=== PATIENT | female | born 1950 | race Caucasian/White ===

== ENCOUNTER 2016-06-21 09:05 | Day surgery (SDC) | payer OTHER ==
[~2016-06-21] VITALS: Ht 167.6 cm; Wt 98.6 kg
[~2016-06-21 09:05] MED LIST: ADVAIR 250/501 DISK IH; ADVAIR HFA120 INHAL1 IH; ASCORBIC ACID250 MG PO; ASPIR-LOW81 MG PO; Aspirin PO; B COMPLETE1 EACH PO; BIOTIN1000 MICRO PO; Biotin PO; CEFTIN500 MG PO; CHANTIX0.5 MG PO; Ceftin PO; DUONEB 2.5-0.5 M3 ML AEROSOL; FRUITY C250 MG PO; HI-B12/Foliplex PO; KETOROLAC TROME10 MG PO; LIDODERM 5% P1 PATCH TD; LYRICA100 MG PO; LYRICA50 MG PO; LYRICA75 MG PO; NICODERM CQ1 EAC1 TD; NICODERM CQ1 EAC2 TD; NICODERM CQ1 EACH TD; NICOTINE PATCH1 EACH TD; PERCOCET 10/1 TABLET PO; PREDNISONE10 MG PO; PREDNISONE20 MG PO; PREDNISONE5 MG PO; PROVENTIL,2.5 MG/0.5 IH; SPIRIVA RESPIMAT4 GM IH; TIZANIDINE HCL2 MG PO; TYLENOL EXTRA500 MG PO; Tylenol Extra Streng PO; VENTOLIN HFA18 GM IH; VITAMIN B-12250 MCG PO; VITAMIN D31000 UNI2 PO; WELLBUTRIN SR150 MG PO; ZANAFLEX2 M1 PO; ZANTAC300 MG PO; Zithromax PO; levofloxacin; predniSONE PO
== END 2016-06-21 11:32 | disposition home or self-care (01) ==
LOC: PAIN 09:05 → SDC 09:30 → PAIN 09:30
PROC: 015B3ZZ Destruction of Lumbar Nerve, Percutaneous Approach (ICD-10-PCS; principal; 2016-06-21)
DX: M47.816 Spondylosis without myelopathy or radiculopathy, lumbar region (principal); F41.9 Anxiety disorder, unspecified; M12.88 Other specific arthropathies, not elsewhere classified, other specified site; M99.83 Other biomechanical lesions of lumbar region; M54.16 Radiculopathy, lumbar region; F17.200 Nicotine dependence, unspecified, uncomplicated; E66.9 Obesity, unspecified; Z68.34 Body mass index [BMI] 34.0-34.9, adult; E78.5 Hyperlipidemia, unspecified; Z96.659 Presence of unspecified artificial knee joint; Z88.1 Allergy status to other antibiotic agents; Z88.2 Allergy status to sulfonamides; Z88.5 Allergy status to narcotic agent
CPT/HCPCS: J2250; J3010

== ENCOUNTER 2016-06-28 08:55 | Day surgery (SDC) | payer OTHER ==
[~2016-06-28] VITALS: Ht 167.6 cm; Wt 98.6 kg
== END 2016-06-28 11:03 | disposition home or self-care (01) ==
LOC: PAIN 08:55 → SDC 09:30 → PAIN 11:03
PROC: 015B3ZZ Destruction of Lumbar Nerve, Percutaneous Approach (ICD-10-PCS; principal; 2016-06-28)
DX: M47.816 Spondylosis without myelopathy or radiculopathy, lumbar region (principal); M54.5 Low back pain; F41.9 Anxiety disorder, unspecified; M12.88 Other specific arthropathies, not elsewhere classified, other specified site; M48.06 Spinal stenosis, lumbar region; M99.83 Other biomechanical lesions of lumbar region; F17.200 Nicotine dependence, unspecified, uncomplicated; E78.5 Hyperlipidemia, unspecified; E66.9 Obesity, unspecified; Z68.34 Body mass index [BMI] 34.0-34.9, adult; J44.9 Chronic obstructive pulmonary disease, unspecified; Z96.659 Presence of unspecified artificial knee joint; Z88.1 Allergy status to other antibiotic agents; Z88.5 Allergy status to narcotic agent
CPT/HCPCS: J1030; J2250; J3010; S0020

== ENCOUNTER 2016-07-21 10:25 | Day surgery (SDC) | payer OTHER ==
[~2016-07-21] VITALS: Ht 167.6 cm; Wt 98.6 kg
[2016-07-26] MEDS ORDERED: NON-ASPIRIN PA325 MG PO (11:21)
== END 2016-07-21 12:50 | disposition home or self-care (01) ==
LOC: PAIN 10:25 → SDC 11:15 → PAIN 12:50
DX: M47.892 Other spondylosis, cervical region (principal); F41.1 Generalized anxiety disorder; J44.9 Chronic obstructive pulmonary disease, unspecified; M12.88 Other specific arthropathies, not elsewhere classified, other specified site; M54.16 Radiculopathy, lumbar region; R73.01 Impaired fasting glucose; F17.200 Nicotine dependence, unspecified, uncomplicated; R91.1 Solitary pulmonary nodule; E78.5 Hyperlipidemia, unspecified
CPT/HCPCS: J1030; J2250; J3010; S0020

== ENCOUNTER 2016-07-28 13:41 | Day surgery (SDC) | payer OTHER ==
[~2016-07-28] VITALS: Ht 167.6 cm; Wt 98.4 kg
[~2016-07-28 13:41] MED LIST changes: +NON-ASPIRIN PA325 MG PO
[2016-07-28] MEDS ORDERED: OXYCODONE HCL15 MG PO (14:32)
== END 2016-07-28 15:56 | disposition home or self-care (01) ==
LOC: PAIN 13:41
PROC: 3E0T3BZ Introduction of Anesthetic Agent into Peripheral Nerves and Plexi, Percutaneous Approach (ICD-10-PCS; principal; 2016-07-28)
DX: M47.892 Other spondylosis, cervical region (principal); F41.1 Generalized anxiety disorder; M54.16 Radiculopathy, lumbar region; F17.200 Nicotine dependence, unspecified, uncomplicated; J44.9 Chronic obstructive pulmonary disease, unspecified; E78.5 Hyperlipidemia, unspecified; M47.816 Spondylosis without myelopathy or radiculopathy, lumbar region; M79.1 Myalgia; R73.01 Impaired fasting glucose
CPT/HCPCS: J1030; J2250; J3010; S0020

== ENCOUNTER 2016-09-02 09:46 | Day surgery (SDC) | payer OTHER ==
[~2016-09-02] VITALS: Ht 167.6 cm; Wt 96.6 kg
[~2016-09-02 09:46] MED LIST changes: +OXYCODONE HCL15 MG PO
== END 2016-09-02 12:17 | disposition home or self-care (01) ==
LOC: PAIN 09:46
DX: M47.812 Spondylosis without myelopathy or radiculopathy, cervical region (principal); F41.9 Anxiety disorder, unspecified; M48.06 Spinal stenosis, lumbar region; M79.1 Myalgia; M19.90 Unspecified osteoarthritis, unspecified site; M25.561 Pain in right knee; F17.200 Nicotine dependence, unspecified, uncomplicated; J44.9 Chronic obstructive pulmonary disease, unspecified; E78.2 Mixed hyperlipidemia; E78.5 Hyperlipidemia, unspecified; R73.01 Impaired fasting glucose; Z68.35 Body mass index [BMI] 35.0-35.9, adult; Z96.659 Presence of unspecified artificial knee joint; Z88.5 Allergy status to narcotic agent; Z88.1 Allergy status to other antibiotic agents; Z88.8 Allergy status to other drugs, medicaments and biological substances
CPT/HCPCS: J1030; J2250; J3010; S0020

== ENCOUNTER 2016-11-15 13:14 | Day surgery (SDC) | payer OTHER ==
[~2016-11-15] VITALS: Ht 167.6 cm; Wt 93.9 kg
[~2016-11-15 13:14] MED LIST changes: +OXYCODONE HCL10 MG PO
== END 2016-11-15 14:50 | disposition home or self-care (01) ==
LOC: PAIN 13:14 → SDC 14:00 → PAIN 14:00
PROC: 015B3ZZ Destruction of Lumbar Nerve, Percutaneous Approach (ICD-10-PCS; principal; 2016-11-15)
DX: M47.816 Spondylosis without myelopathy or radiculopathy, lumbar region (principal); F41.9 Anxiety disorder, unspecified; M48.06 Spinal stenosis, lumbar region; M99.83 Other biomechanical lesions of lumbar region; F17.200 Nicotine dependence, unspecified, uncomplicated; J44.9 Chronic obstructive pulmonary disease, unspecified; E78.2 Mixed hyperlipidemia; R73.01 Impaired fasting glucose; E66.9 Obesity, unspecified; Z68.34 Body mass index [BMI] 34.0-34.9, adult; Z88.1 Allergy status to other antibiotic agents; Z88.5 Allergy status to narcotic agent; Z88.8 Allergy status to other drugs, medicaments and biological substances
CPT/HCPCS: J1030; J2250; J3010; S0020

== ENCOUNTER 2017-03-09 09:20 | Day surgery (SDC) | payer OTHER ==
[~2017-03-09] VITALS: Ht 167.6 cm; Wt 96.2 kg
== END 2017-03-09 11:01 | disposition home or self-care (01) ==
LOC: PAIN 09:20 → SDC 10:00 → PAIN 10:00
PROC: 3E0R33Z Introduction of Anti-inflammatory into Spinal Canal, Percutaneous Approach (ICD-10-PCS; principal; 2017-03-09)
PROC: 3E0R3BZ Introduction of Anesthetic Agent into Spinal Canal, Percutaneous Approach (ICD-10-PCS; principal; 2017-03-09)
PROC: B01B1ZZ Fluoroscopy of Spinal Cord using Low Osmolar Contrast (ICD-10-PCS; principal; 2017-03-09)
DX: M47.22 Other spondylosis with radiculopathy, cervical region (principal); M50.13 Cervical disc disorder with radiculopathy, cervicothoracic region; M25.78 Osteophyte, vertebrae; M48.02 Spinal stenosis, cervical region; M54.16 Radiculopathy, lumbar region; J43.9 Emphysema, unspecified; I10 Essential (primary) hypertension; M79.1 Myalgia; E78.2 Mixed hyperlipidemia; E66.9 Obesity, unspecified; Z68.34 Body mass index [BMI] 34.0-34.9, adult; F17.200 Nicotine dependence, unspecified, uncomplicated
CPT/HCPCS: J1030; J1885; J2250; J3010

== ENCOUNTER 2017-04-16 20:09 | Emergency (ER) | payer OTHER ==
[~2017-04-16] VITALS: Ht 167.6 cm; Wt 87.9 kg
[2017-04-16 20:35] LABS: HEMATOCRIT 41.9 % (36.0-46.0); MCH 27.7 PG (29.0-34.0); MCV 86.7 FL (83-99); MEAN PLAT.VOLUME 10.2 uM^3 (9.5-12.4); PLATELET COUNT 298 K/uL (156-360); RBC DIS.WIDTH-CV 15.2 % (11.8-14.6); RED BLOOD COUNT 4.83 M/uL (3.80-5.20)
[2017-04-16 20:45] LABS: CHLORIDE 107 mEq/L (99-109); POTASSIUM 3.4 mEq/L (3.7-5.4); SODIUM 141 mEq/L (136-147)
[2017-04-16 20:46] LABS: GLUCOSE 96 mg/dL (70-99)
[2017-04-16 20:48] LABS: ANION GAP 9 MEQ/L (2-14)
[2017-04-16 20:50] LABS: GFR ESTIMATE (CALCULATED) > 59 mL/min/
[2017-04-16 20:51] LABS: UREA NITROGEN (BUN) 12 mg/dL (9-23)
[2017-04-16 20:57] LABS: TROP-I INTERPRETATION NEGATIVE; TROPONIN-I < 0.01 ng/mL (0.0-0.30)
[2017-04-16] MEDS ORDERED: PREDNISONE50 MG PO (21:55)
[2017-04-16 23:28] VITALS: BP 126/67
== END 2017-04-16 23:11 | disposition home or self-care (01) ==
LOC: EME → EDBD 20:09 → EME 23:11
PROVIDERS: Emergency Medicine
DX: J44.1 Chronic obstructive pulmonary disease with (acute) exacerbation (principal); G89.29 Other chronic pain; F17.200 Nicotine dependence, unspecified, uncomplicated; Z85.44 Personal history of malignant neoplasm of other female genital organs; Z88.2 Allergy status to sulfonamides; Z88.8 Allergy status to other drugs, medicaments and biological substances
CPT/HCPCS: 71020; 80048; 84484; 85027; 93005; 94640; 99281; 99285; J1100

== ENCOUNTER 2017-05-02 14:59 | Inpatient (IN) | payer OTHER ==
[~2017-05-02] VITALS: Ht 167.6 cm; Wt 101.7 kg
[~2017-05-02 14:59] MED LIST changes: +PREDNISONE50 MG PO; -VITAMIN B-12250 MCG PO; +VITAMIN B-12500 MC5 SL
[2017-05-02 15:55] LABS: HEMATOCRIT 43.1 % (36.0-46.0); MCH 27.9 PG (29.0-34.0); MCHC 31.8 G/DL (30.0-36.0); MCV 87.8 FL (83-99); MEAN PLAT.VOLUME 10.1 uM^3 (9.5-12.4); PLATELET COUNT 296 K/uL (156-360); RBC DIS.WIDTH-CV 15.6 % (11.8-14.6); RBC DIS.WIDTH-SD 50.4 % (39-53); RED BLOOD COUNT 4.91 M/uL (3.80-5.20); WHITE BLOOD COUNT 13.4 K/uL (4.1-10.2)
[2017-05-02 16:01] LABS: CHLORIDE 107 mEq/L (99-109); POTASSIUM 3.3 mEq/L (3.7-5.4); SODIUM 143 mEq/L (136-147)
[2017-05-02 16:03] LABS: GLUCOSE 84 mg/dL (70-99)
[2017-05-02 16:04] LABS: ANION GAP 8 MEQ/L (2-14)
[2017-05-02 16:07] LABS: GFR ESTIMATE (CALCULATED) > 59 mL/min/
[2017-05-02 16:08] LABS: UREA NITROGEN (BUN) 11 mg/dL (9-23)
[2017-05-02 16:14] LABS: TROP-I INTERPRETATION NEGATIVE; TROPONIN-I < 0.01 ng/mL (0.0-0.30)
[2017-05-02] MEDS ORDERED: ATORVASTATIN CA20 MG PO (16:22)
[2017-05-02] MEDS ORDERED: FLUCONAZOLE150 MG PO (16:23)
[2017-05-02] MEDS ORDERED: CEFDINIR300 MG PO (16:25)
[2017-05-02] MEDS ORDERED: PREDNISONE50 MG PO (16:56)
[2017-05-02] MEDS ORDERED: OXYCODONE HCL15 MG PO (18:26)
[2017-05-02 23:52] VITALS: BP 123/62
[2017-05-03 06:13] LABS: HEMATOCRIT 43.3 % (36.0-46.0); MCH 27.1 PG (29.0-34.0); MCHC 30.7 G/DL (30.0-36.0); MCV 88.4 FL (83-99); MEAN PLAT.VOLUME 10.2 uM^3 (9.5-12.4); PLATELET COUNT 295 K/uL (156-360); RBC DIS.WIDTH-CV 15.7 % (11.8-14.6); RBC DIS.WIDTH-SD 50.9 % (39-53); WHITE BLOOD COUNT 11.2 K/uL (4.1-10.2)
[2017-05-03 06:35] LABS: ANION GAP 5 MEQ/L (2-14); CHLORIDE 106 MEQ/L (99-109); GFR ESTIMATE (CALCULATED) > 59 mL/min/; SAMPLE HEMOLYSIS CHECK 0; SAMPLE ICTERIC CHECK 0; SAMPLE LIPEMIA CHECK 0; SODIUM 142 MEQ/L (136-147); UREA NITROGEN (BUN) 10 mg/dL (9-23)
[2017-05-03 06:38] LABS: GLUCOSE 142 mg/dL (70-99)
[2017-05-03 08:23] VITALS: BP 140/84
[2017-05-03] MEDS ORDERED: PREDNISONE10 MG PO (10:57)
[2017-05-03] MEDS ORDERED: MIGRAINE RELIE1 EAC2 PO (10:58)
[2017-05-03 15:31] VITALS: BP 152/82
[2017-05-04 00:08] VITALS: BP 134/63
[2017-05-04 08:02] VITALS: BP 144/91
[2017-05-04] MEDS ORDERED: PREDNISONE10 MG PO (11:59)
[2017-05-04] MEDS ORDERED: SYMBICORT60 INHALAT IH (11:59)
[2017-05-04] MEDS ORDERED: INCRUSE ELLI62.5 MCG IH (11:59)
[2017-05-04] MEDS ORDERED: NICOTINE PATCH1 EAC1 TD (11:59)
== END 2017-05-04 13:40 | disposition home or self-care (01) | DRG 192 ==
LOC: EME 14:59 → EDOF 18:36 → ENRESERV 18:37 → CANRESERV 18:52 → EDOF 19:03 → 5EAST 19:03 → EDOF 19:03 → ENRESERV 19:04 → 5EAST 21:00
PROVIDERS: Emergency Medicine; Hospitalist
DX: J44.1 Chronic obstructive pulmonary disease with (acute) exacerbation (principal); F17.200 Nicotine dependence, unspecified, uncomplicated; G89.29 Other chronic pain; M54.5 Low back pain; E78.5 Hyperlipidemia, unspecified; E03.9 Hypothyroidism, unspecified; Z96.652 Presence of left artificial knee joint; Z85.44 Personal history of malignant neoplasm of other female genital organs; J20.9 Acute bronchitis, unspecified; J44.0 Chronic obstructive pulmonary disease with (acute) lower respiratory infection; Z82.5 Family history of asthma and other chronic lower respiratory diseases; E87.6 Hypokalemia
CPT/HCPCS: 71020; 80048; 84484; 85027; 93005; 94640; 94640 76; 99202; 99281; 99285; J0456; J0696; J1650; J2920; J2930; J7030; J7050; J7512

== ENCOUNTER 2017-06-04 18:36 | Emergency (ER) | payer SELFPAY ==
[~2017-06-04] VITALS: Ht 167.6 cm; Wt 100.3 kg
[~2017-06-04 18:36] MED LIST changes: +ATORVASTATIN CA20 MG PO; +CEFDINIR300 MG PO; +FLUCONAZOLE150 MG PO; +INCRUSE ELLI62.5 MCG IH; +MIGRAINE RELIE1 EAC2 PO; +NICOTINE PATCH1 EAC1 TD; +SYMBICORT60 INHALAT IH
[2017-06-04 20:35] LABS: HEMATOCRIT 43.2 % (36.0-46.0); MCH 27.8 PG (29.0-34.0); MCHC 31.9 G/DL (30.0-36.0); MCV 87.1 FL (83-99); MEAN PLAT.VOLUME 10.6 uM^3 (9.5-12.4); PLATELET COUNT 341 K/uL (156-360); RBC DIS.WIDTH-CV 15.1 % (11.8-14.6); RBC DIS.WIDTH-SD 47.9 % (39-53); RED BLOOD COUNT 4.96 M/uL (3.80-5.20)
[2017-06-04 20:41] LABS: CHLORIDE 109 mEq/L (99-109); POTASSIUM 3.4 mEq/L (3.7-5.4); SODIUM 144 mEq/L (136-147)
[2017-06-04 20:43] LABS: GLUCOSE 86 mg/dL (70-99)
[2017-06-04 20:44] LABS: ANION GAP 10 MEQ/L (2-14)
[2017-06-04 20:46] LABS: GFR ESTIMATE (CALCULATED) > 59 mL/min/
[2017-06-04 20:47] LABS: UREA NITROGEN (BUN) 8 mg/dL (9-23)
[2017-06-04] MEDS ORDERED: CLEOCIN300 MG PO (22:58)
[2017-06-04] MEDS ORDERED: PERCOCET 10/1 TABLET PO (22:58)
[2017-06-04 23:21] VITALS: BP 119/81
== END 2017-06-04 23:41 | disposition home or self-care (01) ==
LOC: EME 18:36
PROVIDERS: Physician Assistant
DX: L03.115 Cellulitis of right lower limb (principal); L03.116 Cellulitis of left lower limb; F17.200 Nicotine dependence, unspecified, uncomplicated; Z88.1 Allergy status to other antibiotic agents; Z88.5 Allergy status to narcotic agent; Z88.2 Allergy status to sulfonamides; D64.9 Anemia, unspecified; M79.7 Fibromyalgia; K21.9 Gastro-esophageal reflux disease without esophagitis; J45.909 Unspecified asthma, uncomplicated
CPT/HCPCS: 73590; 80048; 83605; 83880; 85027; 87040; 87070; 87075; 87205; 99281; 99285; J1885; J3010; J3370; J7030

== ENCOUNTER 2017-06-07 18:21 | Inpatient (IN) | payer SELFPAY ==
[~2017-06-07] VITALS: Ht 167.6 cm; Wt 90.5 kg
[~2017-06-07 18:21] MED LIST changes: +CLEOCIN300 MG PO
[2017-06-07 19:03] LABS: HEMATOCRIT 42.4 % (36.0-46.0); MCH 28.2 PG (29.0-34.0); MCHC 32.3 G/DL (30.0-36.0); MCV 87.2 FL (83-99); MEAN PLAT.VOLUME 10.2 uM^3 (9.5-12.4); PLATELET COUNT 296 K/uL (156-360); RBC DIS.WIDTH-CV 14.9 % (11.8-14.6); RBC DIS.WIDTH-SD 47.8 % (39-53); RED BLOOD COUNT 4.86 M/uL (3.80-5.20); WHITE BLOOD COUNT 8.8 K/uL (4.1-10.2)
[2017-06-07 19:12] LABS: CHLORIDE 107 mEq/L (99-109); POTASSIUM 3.7 mEq/L (3.7-5.4); SODIUM 141 mEq/L (136-147)
[2017-06-07 19:14] LABS: GLUCOSE 116 mg/dL (70-99)
[2017-06-07 19:15] LABS: ANION GAP 9 MEQ/L (2-14)
[2017-06-07 19:16] LABS: TOTAL BILIRUBIN 0.5 mg/dL (0.0-1.0)
[2017-06-07 19:17] LABS: ALKALINE PHOSPHATASE 187 IU/L (3-129)
[2017-06-07 19:18] LABS: GFR ESTIMATE (CALCULATED) > 59 mL/min/
[2017-06-07 19:19] LABS: UREA NITROGEN (BUN) 10 mg/dL (9-23)
[2017-06-08] VITALS (7 sets, daily range): BP systolic 104–145; BP diastolic 59–89
[2017-06-08 08:42] LABS: BASOPHIL COUNT 0.1 K/uL (0-0.1); EOSINOPHIL (%) 3.3 % (0-5); EOSINOPHIL COUNT 0.3 K/uL (0-0.3); HEMATOCRIT 40.7 % (36.0-46.0); IMMATURE GRANULOCYTE (%) 0.8 % (0.0-0.7); IMMATURE GRANULOCYTE COUNT 0.1 K/uL; INSTRUMENT ABS NEUTROPHIL CT 4.2 K/uL; LYMPHOCYTE COUNT 2.4 K/uL (1.0-2.8); MCH 26.7 PG (29.0-34.0); MCHC 30.7 G/DL (30.0-36.0); MEAN PLAT.VOLUME 10.3 uM^3 (9.5-12.4); MONOCYTE (%) 8.5 % (3-12); MONOCYTE COUNT 0.7 K/uL (0-0.8); NEUTROPHIL (%) 54.6 % (45-76); NEUTROPHIL COUNT 4.2 K/uL (1.8-6.4); PLATELET COUNT 312 K/uL (156-360); RBC DIS.WIDTH-CV 14.9 % (11.8-14.6); RBC DIS.WIDTH-SD 47.8 % (39-53); RED BLOOD COUNT 4.68 M/uL (3.80-5.20); WHITE BLOOD COUNT 7.6 K/uL (4.1-10.2)
[2017-06-08 09:04] LABS: ANION GAP 8 MEQ/L (2-14); CHLORIDE 107 MEQ/L (99-109); GFR ESTIMATE (CALCULATED) > 59 mL/min/; GLUCOSE 107 mg/dL (70-99); POTASSIUM 4.1 MEQ/L (3.7-5.4); SAMPLE HEMOLYSIS CHECK 0; SAMPLE ICTERIC CHECK 0; SAMPLE LIPEMIA CHECK 0; SODIUM 140 MEQ/L (136-147); UREA NITROGEN (BUN) 10 mg/dL (9-23)
[2017-06-09 07:30] VITALS: BP 130/66
[2017-06-09 15:21] VITALS: BP 131/88
[2017-06-09 19:31] VITALS: BP 105/61
[2017-06-10 00:13] VITALS: BP 117/64
[2017-06-10 06:03] LABS: BASOPHIL COUNT 0.1 K/uL (0-0.1); EOSINOPHIL (%) 1.9 % (0-5); EOSINOPHIL COUNT 0.2 K/uL (0-0.3); HEMATOCRIT 37.5 % (36.0-46.0); IMMATURE GRANULOCYTE (%) 0.7 % (0.0-0.7); IMMATURE GRANULOCYTE COUNT 0.1 K/uL; INSTRUMENT ABS NEUTROPHIL CT 6.3 K/uL; LYMPHOCYTE COUNT 2.1 K/uL (1.0-2.8); MCH 27.9 PG (29.0-34.0); MCHC 32.3 G/DL (30.0-36.0); MCV 86.6 FL (83-99); MEAN PLAT.VOLUME 10.5 uM^3 (9.5-12.4); MONOCYTE (%) 9.4 % (3-12); MONOCYTE COUNT 0.9 K/uL (0-0.8); NEUTROPHIL (%) 65.3 % (45-76); NEUTROPHIL COUNT 6.3 K/uL (1.8-6.4); PLATELET COUNT 273 K/uL (156-360); RBC DIS.WIDTH-SD 47.5 % (39-53); RED BLOOD COUNT 4.33 M/uL (3.80-5.20); WHITE BLOOD COUNT 9.7 K/uL (4.1-10.2)
[2017-06-10 06:38] LABS: ANION GAP 10 MEQ/L (2-14); CHLORIDE 100 MEQ/L (99-109); GFR ESTIMATE (CALCULATED) > 59 mL/min/; GLUCOSE 137 mg/dL (70-99); MAGNESIUM 1.7 mg/dl (1.3-2.7); POTASSIUM 3.3 MEQ/L (3.7-5.4); SAMPLE HEMOLYSIS CHECK 0; SAMPLE ICTERIC CHECK 0; SAMPLE LIPEMIA CHECK 0; SODIUM 137 MEQ/L (136-147); UREA NITROGEN (BUN) 9 mg/dL (9-23)
[2017-06-10 07:38] VITALS: BP 130/64
[2017-06-10 15:26] VITALS: BP 130/74
[2017-06-11 00:28] VITALS: BP 125/75
[2017-06-11 06:35] LABS: BASOPHIL COUNT 0.1 K/uL (0-0.1); EOSINOPHIL (%) 3.3 % (0-5); EOSINOPHIL COUNT 0.2 K/uL (0-0.3); HEMATOCRIT 38.8 % (36.0-46.0); IMMATURE GRANULOCYTE (%) 0.7 % (0.0-0.7); IMMATURE GRANULOCYTE COUNT 0.1 K/uL; INSTRUMENT ABS NEUTROPHIL CT 3.8 K/uL; LYMPHOCYTE COUNT 2.1 K/uL (1.0-2.8); MCH 26.9 PG (29.0-34.0); MCHC 31.4 G/DL (30.0-36.0); MCV 85.5 FL (83-99); MEAN PLAT.VOLUME 10.6 uM^3 (9.5-12.4); MONOCYTE (%) 9.8 % (3-12); MONOCYTE COUNT 0.7 K/uL (0-0.8); NEUTROPHIL (%) 55.1 % (45-76); NEUTROPHIL COUNT 3.8 K/uL (1.8-6.4); PLATELET COUNT 286 K/uL (156-360); RBC DIS.WIDTH-SD 46.8 % (39-53); RED BLOOD COUNT 4.54 M/uL (3.80-5.20)
[2017-06-11 07:15] LABS: ANION GAP 8 MEQ/L (2-14); CHLORIDE 102 MEQ/L (99-109); GFR ESTIMATE (CALCULATED) > 59 mL/min/; GLUCOSE 107 mg/dL (70-99); POTASSIUM 3.5 MEQ/L (3.7-5.4); SAMPLE HEMOLYSIS CHECK 0; SAMPLE ICTERIC CHECK 0; SAMPLE LIPEMIA CHECK 0; SODIUM 142 MEQ/L (136-147); UREA NITROGEN (BUN) 8 mg/dL (9-23)
[2017-06-11 08:00] VITALS: BP 112/65
[2017-06-11 16:31] VITALS: BP 141/67
[2017-06-11 23:47] VITALS: BP 154/79
[2017-06-12 08:32] VITALS: BP 133/62
[2017-06-12] MEDS ORDERED: K-DUR20 MEQ PO (09:39)
[2017-06-12] MEDS ORDERED: LASIX20 MG PO (09:39)
[2017-06-12] MEDS ORDERED: CARVEDILOL6.25 MG PO (09:40)
[2017-06-12] MEDS ORDERED: LISINOPRIL2.5 MG PO (09:40)
== END 2017-06-12 13:25 | disposition home or self-care (01) | DRG 293 ==
LOC: EME 18:21 → 2EAST 21:12 → EDOF 21:12 → ENRESERV 21:16 → 2EAST 23:51
PROVIDERS: Hospitalist; Internal Medicine; Student in an Organized Health Care Education/Training Program
DX: I50.33 Acute on chronic diastolic (congestive) heart failure (principal); I87.2 Venous insufficiency (chronic) (peripheral); J44.9 Chronic obstructive pulmonary disease, unspecified; F43.23 Adjustment disorder with mixed anxiety and depressed mood; I27.20 Pulmonary hypertension, unspecified; M54.10 Radiculopathy, site unspecified; E78.5 Hyperlipidemia, unspecified; F17.210 Nicotine dependence, cigarettes, uncomplicated; Z68.32 Body mass index [BMI] 32.0-32.9, adult; E66.9 Obesity, unspecified; G89.29 Other chronic pain; R04.0 Epistaxis; K21.9 Gastro-esophageal reflux disease without esophagitis; G43.909 Migraine, unspecified, not intractable, without status migrainosus; M79.7 Fibromyalgia; Z90.710 Acquired absence of both cervix and uterus; Z85.44 Personal history of malignant neoplasm of other female genital organs; Z96.652 Presence of left artificial knee joint; Z79.51 Long term (current) use of inhaled steroids; Z88.2 Allergy status to sulfonamides; Z82.5 Family history of asthma and other chronic lower respiratory diseases
CPT/HCPCS: 80048; 80053; 80202; 83735; 85025; 85027; 93306; 93970; 94640; 94640 76; 94760; 94799; 99202; 99281; 99285; J1170; J1650; J1940; J2405; J3010; J3370

== ENCOUNTER 2017-10-16 10:33 | Day surgery (SDC) | payer OTHER ==
[~2017-10-16] VITALS: Ht 167.6 cm; Wt 90.7 kg
[~2017-10-16 10:33] MED LIST changes: +CARVEDILOL6.25 MG PO; +K-DUR20 MEQ PO; +LASIX20 MG PO; +LISINOPRIL2.5 MG PO; +NEURONTIN300 MG PO
== END 2017-10-16 12:23 | disposition home or self-care (01) ==
LOC: PAIN 10:33 → SDC 11:15 → PAIN 11:15
DX: M47.816 Spondylosis without myelopathy or radiculopathy, lumbar region (principal); M99.83 Other biomechanical lesions of lumbar region; M47.11 Other spondylosis with myelopathy, occipito-atlanto-axial region; F17.200 Nicotine dependence, unspecified, uncomplicated; Z88.1 Allergy status to other antibiotic agents; Z88.5 Allergy status to narcotic agent
CPT/HCPCS: J1030; J1885; J2250; S0020

== ENCOUNTER 2017-11-30 08:45 | Day surgery (SDC) | payer OTHER ==
[~2017-11-30] VITALS: Ht 167.6 cm; Wt 90.7 kg
[~2017-11-30 08:45] MED LIST changes: +POTASSIUM-9999 MG PO; +ROXICODONE15 MG PO; +[UNRECOGNIZED DRUG - OTHER] TP
== END 2017-11-30 11:25 | disposition home or self-care (01) ==
LOC: PAIN 08:45
PROC: BR141ZZ Fluoroscopy of Cervical Facet Joint(s) using Low Osmolar Contrast (ICD-10-PCS; principal; 2017-11-30)
PROC: 3E0T3TZ Introduction of Destructive Agent into Peripheral Nerves and Plexi, Percutaneous Approach (ICD-10-PCS; principal; 2017-11-30)
DX: M47.812 Spondylosis without myelopathy or radiculopathy, cervical region (principal); F17.200 Nicotine dependence, unspecified, uncomplicated; M50.20 Other cervical disc displacement, unspecified cervical region; M48.061 Spinal stenosis, lumbar region without neurogenic claudication; J44.9 Chronic obstructive pulmonary disease, unspecified; E78.2 Mixed hyperlipidemia; R73.01 Impaired fasting glucose; E66.9 Obesity, unspecified; Z68.32 Body mass index [BMI] 32.0-32.9, adult; Z79.82 Long term (current) use of aspirin; Z88.1 Allergy status to other antibiotic agents; Z88.5 Allergy status to narcotic agent; Z88.8 Allergy status to other drugs, medicaments and biological substances
CPT/HCPCS: J1030; J2250; S0020

== ENCOUNTER 2018-01-25 08:15 | Day surgery (SDC) | payer OTHER ==
[~2018-01-25] VITALS: Ht 167.6 cm; Wt 90.8 kg
== END 2018-01-25 10:30 | disposition home or self-care (01) ==
LOC: PAIN 08:15 → SDC 09:00 → PAIN 09:00
DX: M47.812 Spondylosis without myelopathy or radiculopathy, cervical region (principal); M50.33 Other cervical disc degeneration, cervicothoracic region; M47.816 Spondylosis without myelopathy or radiculopathy, lumbar region; J44.9 Chronic obstructive pulmonary disease, unspecified; K21.9 Gastro-esophageal reflux disease without esophagitis; M79.7 Fibromyalgia; Z88.1 Allergy status to other antibiotic agents; Z88.2 Allergy status to sulfonamides; Z88.5 Allergy status to narcotic agent; Z79.82 Long term (current) use of aspirin; Z79.891 Long term (current) use of opiate analgesic
CPT/HCPCS: J1030; J2250; J3010; S0020